=== PATIENT | male | born 1980 | race Caucasian/White ===

== ENCOUNTER 2018-12-08 07:12 | Emergency (ER) | payer SELFPAY ==
[~2018-12-08 07:12] MED LIST: METH-543 PO; OXYC-373 PO
--- NOTE | 2018-12-08 07:14 | ER Report ---
History and Physical Time Seen By MD: 07:14 HPI/ROS CHIEF COMPLAINT: Fall, right shoulder pain HISTORY OF PRESENT ILLNESS: Patient is a 38-year-old male here with complaints of fall this morning within an hour of arrival. Patient reports significant pain with range of motion and movement of the right shoulder. Patient is neuro vascularly intact distal to the injury site with good motor strength, intact sensation, capillary refill less than 3 seconds, deltoid sensation intact. Patient denies other complaints of pain or injury at this time. Denies head or neck pain, chest pain, shortness breath. Patient denies taking analgesics prior to arrival. REVIEW OF SYSTEMS: Constitutional: No fever, no chills. Musculoskeletal: No back pain. + right shoulder and proximal humerus pain Skin: No rashes. Neurological: + NV intact distal to injury Allergies: Coded Allergies: No Known Drug Allergies (Unverified , 12/08/18) Home Meds Active Scripts Tramadol Hcl (TRAMADOL HCL) 50 Mg Tablet, 50 MG PO Q6H PRN for PAIN, #12 TAB 0 Refills Prov:CHAYITO GIBSON DO 12/08/18 Discontinued Scripts Methocarbamol (ROBAXIN-750) 750 Mg Tablet, 750 MG PO Q4-6H PRN for MUSCLE SPASMS, #20 TAB Prov:DERRELL MENDOZA V DO 08/25/18 Oxycodone Hcl/Acetaminophen (OXYCODONE-ACETAMINOPHEN 5-325) 1 Each Tablet, 1 EACH PO Q4-6H PRN for PAIN, #30 TAB Prov:LAURORA,DERRELL V DO 08/25/18 Hx Smoking: Yes Smoking Status: Current: Every Day Smoker Hx Alcohol Use: Yes (occasional) Constitutional Vital Sign - Last 24 Hours 12/08/18 12/08/18 07:18 08:50 Temp 98.6 Pulse 98 Resp 16 B/P (MAP) 126/100 115/85 (95) Pulse Ox 94 O2 Delivery Room Air Physical Exam General Appearance: The patient is alert, has no immediate need for airway protection and no signs of toxicity. Uncomfortable appearing Neurological: Neurovascular exam intact in the distal upper extremity distal to the injury site with good motor strength, intact sensation, good deltoid sensation, capillary refill less than 2 seconds in distal extremity Skin: Warm and dry, no rashes. Musculoskeletal: Neck is supple non tender. + Right shoulder pain with range of motion, intact strength in the distal extremity DIFFERENTIAL DIAGNOSIS: After history and physical exam differential diagnosis was considered for fracture, contusion, dislocation, sprain Medical Decision Making EKG/Imaging Imaging PATIENT NAME: Marlon Samuel : 1980 MR: [id number] V: [id number] EXAM DATE: ORDERING PHYSICIAN: CHAYITO GIBSON TECHNOLOGIST: Location: [facility] - [place] Patient: Marlon Samuel : 1980 Visit/Account:[id number] Date of Sevice: 12/08/2018 CLAVICLE RIGHT HISTORY: fall COMPARISON: None FINDINGS: No clavicular fracture. The AC joint is normal. The glenohumeral joint is normal. IMPRESSION: No fracture. Report Dictated By: Jluis Mosher at 12/08/2018 8:20 AM PATIENT NAME: Marlon Samuel : 1980 MR: [id number] V: [id number] EXAM DATE: ORDERING PHYSICIAN: CHAYITO GIBSON TECHNOLOGIST: Location: [facility] [place] Patient: Marlon Samuel : 1980 Visit/Account:[id number] Date of Sevice: 12/08/2018 HUMERUS RIGHT HISTORY: fall COMPARISON: None FINDINGS: AP and lateral views of the right humerus demonstrates no evidence of acute fracture. There is no evidence of lytic or blastic bony lesions. The visualized soft tissues are unremarkable. IMPRESSION: No acute osseous injury PATIENT NAME: Marlon Samuel : 1980 MR: [id number] V: [id number] EXAM DATE: ORDERING PHYSICIAN: CHAYITO GIBSON TECHNOLOGIST: Location: [facility] [place] Patient: Marlon Samuel : 1980 Visit/Account:[id number] Date of Sevice: 12/08/2018 SHOULDER MIN 2 VIEWS RIGHT HISTORY: fall COMPARISON: None FINDINGS: AP views of the right shoulder in internal and external rotation as well as a Y view and an axillary view demonstrate no evidence of glenohumeral joint dislocation. There is no evidence of acute fracture of the visualized bony structures. There are no significant degenerative changes. The acromioclavicular joint is normal in appearance. IMPRESSION: No acute osseous abnormality Report Dictated By: Jluis Mosher at 12/08/2018 8:19 AM ED Course/Re-evaluation ED Course Patient is a 38-year-old male here status post fall within an hour of arrival. Patient complains of right shoulder pain with range of motion and palpation. Neurovascular exam intact distal to the injury site including good deltoid sensa tion, good motor strength in the distal extremity, capillary refill less than 2 seconds in the distal extremity. X-ray imaging was completed. Patient was given 2 Percocet for analgesia. No acute fractures identified on x-ray imaging. Patient was placed in a sling and advised to follow-up with orthopedics as needed. Tramadol given for outpatient analgesia. Return precautions provided. Close PCP follow-up recommended. Decision to Disposition Date: December 08, 2018 Decision to Disposition Time: 08:44 Depart Departure Latest Vital Signs Vital Signs Date Time Temp Pulse Resp B/P (MAP) Pulse Ox O2 Delivery O2 Flow Rate FiO2 12/08/18 08:50 115/85 (95) 12/08/18 07:18 98.6 98 16 94 Room Air Impression: Primary Impression: Shoulder contusion Condition: Improved Disposition: HOME OR SELF-CARE New Scripts Tramadol Hcl (TRAMADOL HCL) 50 Mg Tablet 50 MG PO Q6H PRN for PAIN, #12 TAB 0 Refills Prov: CHAYITO GIBSON DO 12/08/18 Patient Instructions: Contusion in Adults (ED) Additional Instructions: You may take ibuprofen, naproxen or acetaminophen as needed for primary pain control. You may take 1 tablet of tramadol every 8 hours as needed for breakthrough pain control. Please do not drive or drink alcohol while on this medication as it may be sedating. Please follow-up with your primary care provider in the next 24-48 hours and orthopedics as needed for follow-up care. Please keep sling in place. Please return promptly if she develop numbness, motor weakness, worsening pain. CHAYITO GIBSON DO December 08, 2018 07:14
[2018-12-08] MEDS ORDERED: oxyCODON/ACET (*)5/325MG (CII) 1 TAB TAB PO ONE (07:25)
--- NOTE | 2018-12-08 08:24 | RADIOLOGY IMAGING REPORT ---
FACILITY: [facility] - [place] PATIENT NAME: Marlon Samuel : 1980 MR: [id number] V: [id number] EXAM DATE: ORDERING PHYSICIAN: CHAYITO GIBSON TECHNOLOGIST: Location: [facility] - [place] Patient: Marlon Samuel : 1980 Visit/Account:[id number] Date of Sevice: 12/08/2018 SHOULDER MIN 2 VIEWS RIGHT HISTORY: fall COMPARISON: None FINDINGS: AP views of the right shoulder in internal and external rotation as well as a Y view and an axillary view demonstrate no evidence of glenohumeral joint dislocation. There is no evidence of acu te fracture of the visualized bony structures. There are no significant degenerative changes. The ac romioclavicular joint is normal in appearance. IMPRESSION: No acute osseous abnormality Report Dictated By: Jluis Mosher at 12/08/2018 8:19 AM Report E-Signed By: Jluis Mosher at 12/08/2018 8:20 AM WSN:[id number]
--- NOTE | 2018-12-08 08:25 | RADIOLOGY IMAGING REPORT ---
FACILITY: [facility] PATIENT NAME: Marlon Samuel : 1980 MR: [id number] V: [id number] EXAM DATE: ORDERING PHYSICIAN: CHAYITO GIBSON TECHNOLOGIST: Location: [facility] - [place] Patient: Marlon Samuel : 1980 Visit/Account:[id number] Date of Sevice: 12/08/2018 CLAVICLE RIGHT HISTORY: fall COMPARISON: None FINDINGS: No clavicular fracture. The AC joint is normal. The glenohumeral joint is normal. IMPRESSION: No fracture. Report Dictated By: Jluis Mosher at 12/08/2018 8:20 AM Report E-Signed By: Jluis Mosher at 12/08/2018 8:20 AM WSN:[id number]
--- NOTE | 2018-12-08 08:26 | RADIOLOGY IMAGING REPORT ---
FACILITY: [facility] PATIENT NAME: Marlon Samuel : 1980 MR: [id number] V: [id number] EXAM DATE: ORDERING PHYSICIAN: CHAYITO GIBSON TECHNOLOGIST: Location: [facility] Patient: Marlon Samuel : 1980 Visit/Account:[id number] Date of Sevice: 12/08/2018 HUMERUS RIGHT HISTORY: fall COMPARISON: None FINDINGS: AP and lateral views of the right humerus demonstrates no evidence of acute fracture. There is no evidence of lytic or blastic bony lesions. The visualized soft tissues are unremarkable. IMPRESSION: No acute osseous injury Report Dictated By: Jluis Mosher at 12/08/2018 8:20 AM Report E-Signed By: Jluis Mosher at 12/08/2018 8:21 AM WSN:[id number]
[2018-12-08] MEDS ORDERED: TRAM-420 PO (08:46)
[2018-12-08 08:50] VITALS: BP 115/85
== END 2018-12-08 08:55 | disposition home or self-care (01) ==
LOC: ER 07:23
DX: S40.011A Contusion of right shoulder, initial encounter (principal)
CPT/HCPCS: 73000; 73030; 73060; 99284; A4565